=== PATIENT | female | born 1945 | race Caucasian/White ===

== ENCOUNTER 2018-03-24 19:26 | Emergency (ER) | payer MEDICARE ==
--- NOTE | 2018-03-24 19:52 | C.PDOC ---
Time Seen by Provider: 03/24/18 19:52 Past Medical History Reviewed: Historical Data, Nursing Documentation, Vital Signs Vital Signs: Last Vital Signs Temp 97.6 F 03/24/18 22:01 Pulse 66 03/24/18 22:01 Resp 16 03/24/18 22:01 BP 158/77 H 03/24/18 22:01 Pulse Ox 99 03/24/18 22:01 - Medical History PMH: Colonic Polyps Denies: Chronic Kidney Disease Surgical History: Cholecystectomy - [facility] Procedures ENDOSC POLYPECTOMY OF LG INTEST (09/17/14) Family History: States: No Known Family Hx ED Course And Treatment O2 Sat by Pulse Oximetry: 99 Pulse Ox Interpretation: Normal Reevaluation Time: 22:12 Reassessment Condition: Improved Medical Decision Making Medical Decision Making: Upon provider reevaluation patient is feeling better, is medically stable, and requires no further treatment in the ED at this time. Patient will be discharged home with Rx for zofran and tylenol . Counseling was provided and all questions were answered regarding diagnosis and need for follow up dr shook. There is agreement to discharge plan. Return if symptoms persist or worsen. Disposition Counseled Patient/Family Regarding: Studies Performed, Diagnosis, Need For Followup, Rx Given - Disposition Referrals: Prema Shook MD [Medical Doctor] - Disposition: HOME/ ROUTINE Disposition Time: 19:52 Condition: FAIR Additional Instructions: Please return if symptoms recur Prescriptions: Acetaminophen [Tylenol Extra Strength] 500 mg PO Q8H PRN #15 tablet PRN Reason: Pain, Moderate (4-7) Ondansetron ODT [Zofran ODT] 1 odt PO BID PRN #6 odt PRN Reason: Nausea/Vomiting Instructions: Headache, Adult (DC) Print Language: SLOVAK - Clinical Impression Clinical Impression: Headache
[2018-03-24 22:02] VITALS: BP 158/77; PULSE 66; RESP 16; TEMP 97.6; O2SAT 99
--- NOTE | 2018-03-25 08:31 | CT ---
Date of service: 03/24/2018 PROCEDURE: CT HEAD WITHOUT CONTRAST. HISTORY: hit head COMPARISON: None available. TECHNIQUE: Axial computed tomography images were obtained through the head/brain without intravenous contrast. Radiation dose: Total exam DLP = 713.16 mGy-cm. This CT exam was performed using one or more of the following dose reduction techniques: Automated exposure control, adjustment of the mA and/or kV according to patient size, and/or use of iterative reconstruction technique. FINDINGS: HEMORRHAGE: No intracranial hemorrhage. BRAIN: No mass effect or edema. No atrophy or chronic microvascular ischemic changes. VENTRICLES: Unremarkable. No hydrocephalus. CALVARIUM: Unremarkable. PARANASAL SINUSES: Unremarkable as visualized. No significant inflammatory changes. MASTOID AIR CELLS: Unremarkable as visualized. No inflammatory changes. OTHER FINDINGS: None. IMPRESSION: No intracranial hemorrhage. Minimal chronic periventricular white matter ischemic change. Otherwise unremarkable examination. The preliminary findings for this examination were reported by [facility] at 8:44 p.m. on 03/24/2018. There is concurrence of this report with the preliminary findings.
== END 2018-03-24 22:25 | disposition home or self-care (01) ==
LOC: C.ER 19:26
DX: R51 Headache (principal)